=== PATIENT | male | born 1995 | race Caucasian/White ===

== ENCOUNTER 2016-11-03 02:04 | Emergency (ER) | payer SELFPAY ==
[2016-11-03] MEDS ORDERED: Sodium Chloride 0.9% 1,000 ML IV ONE (02:22)
--- NOTE | 2016-11-03 02:23 | ED Physician Chart ---
Chief Complaint/HPI - Patient Information Date Seen:: 11/03/16 Time Seen:: 02:10 Chief Complaint:: alcohol intoxication History of Present Illness:: 21-year-old male with acute, constant, severe, alcohol intoxication that started about 30 minutes prior to arrival to the ER when he was discovered by his mother passed on the bathroom floor. Had associated nausea and vomiting. Denies any other substance abuse. Denies pain. Denies shortness of breath, numbness, tingling, headache, acute vision changes, chest pain or palpitations, gross hematuria, hematemesis. Historian:: Patient, EMS, Family Member (mother) Review:: Nurse's Note Reviewed, EMS run form Reviewed Review of Systems - Review of Systems Other: Complete system review otherwise unremarkable except as noted in history of present illness. Past Medical History - Past Medical History Past Medical History: No significant medical hx Family History: None Social History: Non Smoker, No Alcohol, No Drug Use, Lives With Parents Surgical History: None Psychiatricy History: None Medication: None Family Medical History - Family Member Mother History Unknown: Yes Ethnicity: Living Status: Still Living Hx Family Cancer: No Hx Family Coronary Artery Disease: No Hx Family Congestive Heart Failure: No Physical Exam - Physical Examination Other:: INITIAL VITAL SIGNS: Reviewed by me GENERAL: Sleeping but arousable. No acute distress. Smells of alcohol. HEAD: Head is normocephalic and atraumatic EYES: EOMI. PERRL. No scleral icterus. No conjunctival injection ENT: Moist mucous membranes. NECK: Supple. No masses. Full range of motion RESPIRATORY: No tachypnea. Clear breath sounds bilaterally. No wheezing, rales, or rhonchi CV: Regular rate and rhythm. No murmurs, rubs, or gallops ABDOMEN: Soft, non-distended, non-tender. No guarding. No rebound. No masses. EXTREMITIES: No deformity. No cyanosis. No edema. SKIN: Warm and dry. No obvious rashes. NEUROLOGIC: Alert and oriented. Face is symmetric. Speech is normal. Moves all extremities equally. Motor and sensory distally intact. ED Septic Shock - . Is Septic Shock (SBP<90, OR Lactate>4 mmol\L) present?: No Reassessment (Disposition) - Reassessment Reassessment:: Patient brought in with acute alcohol intoxication. Other labs essentially unremarkable. Patient was hydrated and given antiemetics. Was observed here in the ER. Was allowed to metabolize alcohol here. When he became alert alert and oriented was walking without any gait abnormalities he was discharged home under the care of his mother. Recommend follow-up with primary care 1-2 days. Return to ER precautions given. Patient says he understands and agrees with the plan. BP was elevated above 120/80 mmHg but without signs of hypertension. I discussed the need for follow up with the primary care physician regarding hypertension. Reassessment Condition:: Improved - Diagnosis Diagnosis:: Acute alcohol intoxication pre-hypertension - Aftercare/Follow up Instructions Aftercare/Follow-Up Instructions:: Counseled pt regarding lab results/diagnosis & need follow up, Refer to Discharge Instructions - Patient Disposition Discharge/Transfer:: Home Time:: 05:25 Condition at Disposition:: Stable ED Discharge Plan - Patient Disposition Admit/Discharge/Transfer: PT DISCHARGED HOME Condition at Disposition: Improved Instructions: Alcohol Intoxication, [id number] Additional Instructions: FOLLOW UP WITH YOUR DOCTOR IN 2-3 DAYS AND TO COME BACK TO ER IF SYMPTOMS WORSEN. STOP DRINKING ALCOHOL
[2016-11-03] MEDS ORDERED: Naloxone 0.4 mg/mL 1mL Vial IVP STA (02:28)
[2016-11-03] MEDS ORDERED: Naloxone 0.4 mg/mL 1mL Vial ONE (02:37)
[2016-11-03 02:57] LABS: % EOSINOPHILS 5.8 % (0.0-5.0); % LYMPHOCYTES 37.1 % (20.0-50.0); % MONOCYTES 6.3 % (2.0-10.0); % NEUTROPHILS 49.8 % (40.0-80.0); HEMATOCRIT 44.9 % (39.0-49.0); MEAN CELL VOLUME 92.6 fl (80-99); MEAN CORPUSCULAR HGB CONC 33.4 pg (28.0-36.0); MEAN PLATELET VOLUME 8.1 fl; NEUTROPHILE ABSOLUTE 2.8 Th/cmm (1.8-8.0); PLATELET COUNT 205 Th/cmm (150-400); RED BLOOD COUNT 4.85 Mil/cmm (4.30-5.70); RED CELL DISTRIBUTION WIDTH 12.1 % (11.5-20.0); WHITE BLOOD COUNT 5.5 Th/cmm (4.8-10.8)
[2016-11-03 03:07] LABS: ALB/GLOB RATIO 1.5 (1.0-1.8); ALKALINE PHOSPHATASE 51 U/L (34-104); ANION GAP 9.4 (7.0-16.0); BILIRUBIN,TOTAL 0.4 mg/dL (0.3-1.0); BUN - UREA NITROGEN 12 mg/dL (7-25); BUN/CREATININE RATIO 17.1; CARBON DIOXIDE 21.8 mEq/L (21.0-31.0); CHLORIDE 110 mEq/L (98-107); CREATININE - SERUM 0.7 mg/dL (0.7-1.3); GLUCOSE 104 mg/dL (70-105); POTASSIUM SERUM 3.2 mEq/L (3.5-5.1); SGOT 19 U/L (13-39); SGPT/ALT 12 U/L (7-52); SODIUM SERUM 138 mEq/L (136-145)
== END 2016-11-03 05:45 | disposition home or self-care (01) ==
LOC: ER 02:04
DX: F10.129 Alcohol abuse with intoxication, unspecified (principal)
CPT/HCPCS: 99284; 96361; 96374; 96375; 36415; 85025; 80320; 80053; J2405; J7030; X6614; Z7502